=== PATIENT | female | born 1965 | race Caucasian/White ===

== ENCOUNTER → 2016-06-30 | Day surgery (SDC) | payer BC ==
[~2016-06-30] VITALS: Ht 172.7 cm; Wt 77.5 kg
[2016-06-30] VITALS (9 sets, daily range): BP systolic 99–124; BP diastolic 61–75; PULSE 81–94; TEMP 36.5–37; O2SAT 95–100; BMI 26.0
[~2016-06-30] MED LIST: ACETAMINOPHEN 500 MG TAB PO ONE; ACETAMINOPHEN 500 MG TAB PO SCH; BCPILLS PO; CALC667C4 PO; CHOL1000 PO; CLR10 PO; DIPHENHYDRAMINE IV SCH; FRS/40 PO; LISI-725 PO; METHYLPREDNISOLONE IV SCH; Magnesium PO; NXM/40 PO; PLMINUNK; PROBIOTIC; RITUXIMAB IV ONE; SODIUM CHLORIDE 0.9% IV ONE; SODIUM CHLORIDE 0.9% IV SCH; VTMEUNK PO; WARF5TAB7 PO; calcium PO
[2016-08-18] VITALS (8 sets, daily range): BP systolic 102–126; BP diastolic 63–80; PULSE 82–92; TEMP 36.7–37; O2SAT 96–99; Ht 172.7 cm; Wt 77.5 kg
== END | disposition home or self-care (01) ==
LOC: C.MTU 08:56
PROVIDERS: ATTEND Internal Medicine Nephrology
DX: N20.2 Calculus of kidney with calculus of ureter (principal)

== ENCOUNTER → 2016-07-14 | Outpatient (CLI) | payer BC ==
[~2016-07-14] MED LIST changes: -ACETAMINOPHEN 500 MG TAB PO ONE; -ACETAMINOPHEN 500 MG TAB PO SCH; -BCPILLS PO; -CALC667C4 PO; -DIPHENHYDRAMINE IV SCH; -METHYLPREDNISOLONE IV SCH; -PLMINUNK; -PROBIOTIC; -RITUXIMAB IV ONE; -SODIUM CHLORIDE 0.9% IV ONE; -SODIUM CHLORIDE 0.9% IV SCH
== END | disposition home or self-care (01) ==
LOC: C.PAPS 12:05
PROVIDERS: ATTEND Obstetrics & Gynecology
DX: Z01.419 Encounter for gynecological examination (general) (routine) without abnormal findings (principal)

== ENCOUNTER → 2016-09-08 | Outpatient (CLI) | payer BC ==
[2016-09-08 13:00] LABS: URINE APPEARANCE CLEAR (CLEAR); URINE BILIRUBIN NEG (NEG); URINE COLOR YELLOW; URINE NITRITE NEG (NEG); URINE SPECIFIC GRAVITY 1.014 (1.000-1.030); UROBILINOGEN NEG (NEG); ZZUR CULT IF INDIC CLEAN CATCH NO
[2016-09-08 13:04] LABS: MANUAL MICROSCOPIC REQUIRED? NO; REVIEW REQ? NO
[2016-09-08 13:07] LABS: URINE PROTIEN/CREAT RATIO 5.4 (0-0.2)
--- NOTE | 2016-10-26 07:45 | CODING QUERY MEDICAL NECESSITY ---
SUPPORTING DIAGNOSIS NEEDED A supporting diagnosis is required for the test/procedure performed on this patient in order for us to be reimbursed by the patient's insurance. Please provide a supporting diagnosis for the following test/procedure listed below next to the test name along with your signature. *If there is no additional diagnosis for this patient that would support the following test/procedure please document that below next to the test/procedure. Test(s)/Procedure(s) that require a supporting diagnosis: * VITAMIN D, 25-HYDROXY DIAGNOSIS: Provider Signature: Date: Thank you Ch[facility] [employer] [facility] Once completed, please kindly fax back to [phone] For questions please call [phone]
== END | disposition home or self-care (01) ==
LOC: C.LABPVFM 15:33
PROVIDERS: ATTEND Internal Medicine Nephrology
DX: N02.2 Recurrent and persistent hematuria with diffuse membranous glomerulonephritis (principal); E55.9 Vitamin D deficiency, unspecified

== ENCOUNTER → 2016-09-13 | Outpatient (CLI) | payer BC ==
[2016-09-13 14:10] LABS: URINE TOTAL PROTEIN 422.5 mg/dl (0-11.9)
[2016-09-13 14:17] LABS: URINE TOTAL PROTEIN CALC 6337.5 mg/24 hr (0-149.1)
== END | disposition home or self-care (01) ==
LOC: C.LABPVFM 11:56
PROVIDERS: ATTEND Internal Medicine Nephrology
DX: N02.2 Recurrent and persistent hematuria with diffuse membranous glomerulonephritis (principal); N28.9 Disorder of kidney and ureter, unspecified

== ENCOUNTER → 2017-02-16 | Outpatient (CLI) | payer BC ==
[2017-02-16 12:55] LABS: URINE APPEARANCE CLEAR (CLEAR); URINE BILIRUBIN NEG (NEG); URINE COLOR YELLOW; URINE NITRITE NEG (NEG); URINE PH 5.5 (4.5-7.5); URINE SPECIFIC GRAVITY 1.017 (1.000-1.030); UROBILINOGEN NEG (NEG); ZZUR CULT IF INDIC CLEAN CATCH NO
[2017-02-16 12:56] LABS: MANUAL MICROSCOPIC REQUIRED? NO; REVIEW REQ? NO
[2017-02-16 13:13] LABS: BLOOD UREA NITROGEN 23 mg/dl (7-18); BUN/CREATININE RATIO 37.9 (10-20); CALCIUM 8.6 mg/dl (8.5-10.1); CARBON DIOXIDE 29 mmol/L (21-32); CHLORIDE 107 mmol/L (98-107); CREATININE 0.62 mg/dl (0.60-1.20); GLUCOSE 93 mg/dl (70-99); MAGNESIUM 1.7 mg/dl (1.8-2.4); PHOSPHORUS 3.5 mg/dl (2.5-4.9); POTASSIUM 4.2 mmol/L (3.5-5.1); SODIUM 141 mmol/L (136-145)
[2017-02-16 13:21] LABS: URINE PROTIEN/CREAT RATIO 3.2 (0-0.2); URINE TOTAL PROTEIN 214.3 mg/dl (0-11.9)
== END | disposition home or self-care (01) ==
LOC: C.LABPVFM 13:09
PROVIDERS: ATTEND Internal Medicine Nephrology
DX: N02.2 Recurrent and persistent hematuria with diffuse membranous glomerulonephritis (principal)

== ENCOUNTER → 2017-03-02 | Outpatient (CLI) | payer BC ==
--- NOTE | 2017-03-05 07:50 | MAMMOGRAPHY REPORT ---
BILATERAL DIGITAL SCREENING MAMMOGRAM TOMOSYNTHESIS WITH CAD: 03/02/2017 CLINICAL HISTORY: Routine screening. Patient has no complaints. TECHNIQUE: Breast tomosynthesis in addition to standard 2D mammography was performed. Current study was also evaluated with a Computer Aided Detection (CAD) system. COMPARISON: Comparison is made to exams dated: 02/07/2016 mammogram, 02/01/2015 mammogram, 4 mammogram, 01/20/2013 mammogram, 01/15/2012 mammogram, and 01/13/2011 mammogram - [facility]. BREAST COMPOSITION: There are scattered areas of fibroglandular density in both breasts. FINDINGS: The parenchymal pattern is similar to prior mammograms. There are numerous benign rodlike and rim calcifications in the lateral aspect of each breast. No developing mass, architectural dist ortion or cluster of suspicious microcalcifications is seen in either breast. IMPRESSION: ACR BI-RADS CATEGORY 2: BENIGN There is no mammographic evidence of malignancy. A 1 year screening mammogram is recommended. The pa tient will receive written notification of the results. Approximately 10% of breast cancers are not detected with mammography. A negative mammographic report should not delay biopsy if a clinically suggestive mass is present. Anastasiya Prieto M.D. ay/:03/03/2017 09:33:05 Tail Ripper: Magaly FORD(Cole)(M), [facility] letter sent: Normal 1/2 BI-RADS Code: ACR BI-RADS Category 2: Benign
== END | disposition home or self-care (01) ==
LOC: C.MAMM 14:33
PROVIDERS: ATTEND Obstetrics & Gynecology
DX: Z12.31 Encounter for screening mammogram for malignant neoplasm of breast (principal)

== ENCOUNTER → 2017-08-10 | Outpatient (CLI) | payer BC | END | disposition home or self-care (01) | LOC: C.PAPS 12:07 | PROVIDERS: ATTEND Obstetrics & Gynecology | DX: Z01.419 Encounter for gynecological examination (general) (routine) without abnormal findings (principal) ==

== ENCOUNTER → 2017-11-01 | Outpatient (CLI) | payer BC | END | disposition home or self-care (01) | LOC: C.LABPVFM 11:06 | PROVIDERS: ATTEND Internal Medicine Nephrology | DX: N02.2 Recurrent and persistent hematuria with diffuse membranous glomerulonephritis (principal) ==